=== PATIENT | female | born 2000 | race Caucasian/White ===

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

== ENCOUNTER 2019-01-11 14:16 | Emergency (ER) | payer SELFPAY ==
[~2019-01-11] VITALS: Ht 167.6 cm; Wt 53.8 kg
--- NOTE | ~2019-01-11 | EKG ---
[place], [place] ELECTROCARDIOGRAM REPORT NAME: GHAZAL CHARLES UNIT #: [id number] ROOM: DOCTOR: CORINNA DRAFT REPORT BIRTHDATE: [birth year] [facility] Test Date: 2019-01-11 Test Time: 14:54:09 Pat Name: GHAZAL CHARLES Department: Room: Gender: F Plate Conditioner: Maura Yap : 2000 Requested By: RANDA SEBASTIAN Order Number: [id number] Reading MD: Eve Hough MD Measurements Intervals [place] Rate: 107 P: 70 MD: 118 QRS: 34 QRSD: 75 T: 42 QT: 315 QTc: 421 Interpretive Statements Sinus tachycardia Probable left atrial enlargement Anterior infarct, age undetermined Compared to ECG 06/22/2018 00:54:45 No significant changes Electronically Signed On 01-12-2019 7:04:24 PDT by Eve Hough MD CM:EKGRPT:ELECTROCARDIOGRAM REPORT [id number] RANDA SHIELDS DRAFT REPORT RANDA SEBASTIAN DO
[2019-01-11 15:01] LABS: BASO % 0.3 % (0.0-1.0); EOS # 0.1 10*3/uL (0.0-0.4); EOS % 0.6 % (1.0-4.0); HEMATOCRIT 42.1 % (37.0-47.0); HEMOGLOBIN 13.1 g/dl (12.0-16.0); LYMPH # 1.1 10*3/uL (1.3-4.4); LYMPH % 10.7 % (27.0-41.0); MEAN CELL VOLUME 82.9 fl (81.0-99.0); MEAN CORPUSCULAR HGB 25.8 pg (27.0-31.0); MEAN CORPUSCULAR HGB CONC 31.1 g/dl (33.0-37.0); MONO # 0.6 10*3/uL (0.1-1.0); MONO % 6.1 % (3.0-9.0); NEUT # 8.1 10*3/uL (2.3-7.9); NEUT % 81.7 % (47.0-73.0); PLATELET COUNT AUTOMATED 318 10*3/uL (130-400); RED BLOOD COUNT 5.08 10*6/uL (4.10-5.10); RED CELL DISTRI WIDTH 15.5 % (0-14.5)
[2019-01-11 15:10] LABS: ACT PARTIAL THROMBO TIME 21.1 SECONDS (20.8-31.5)
[2019-01-11 15:27] LABS: ALBUMIN 3.6 gm/dl (3.1-4.5); ALKALINE PHOSPHATASE 116 U/L (45-117); BUN 5 mg/dl (7-24); CHLORIDE 109 mmol/L (98-107); CREATININE 0.74 mg/dL (0.55-1.02); LIPASE 54 U/L (73-393); POTASSIUM 4.1 mmol/L (3.5-5.1); SGOT/AST 144 IU/L (3-35); SGPT/ALT 219 U/L (12-78); SODIUM 140 mmol/L (136-145); TOTAL PROTEIN 8.1 gm/dL (6.4-8.2)
[2019-01-11 15:35] LABS: ACETAMINOPHEN (TYLENOL) < 5.0 ug/ml (10-30); BETA-HCG, QUANT < 1.0 mIU/mL (1-3); ETHYL ALCOHOL < 3.0 mg/dl (<3); TROPONIN I < 0.015 ng/ml (<0.045)
== END 2019-01-11 16:29 | disposition home or self-care (01) ==
LOC: ED 14:16
PROVIDERS: Emergency Medicine
DX: T40.1X1A Poisoning by heroin, accidental (unintentional), initial encounter (principal); R51 Headache; R79.1 Abnormal coagulation profile; Y92.89 Other specified places as the place of occurrence of the external cause

== ENCOUNTER 2019-09-10 19:04 | Emergency (ER) | payer OTHER ==
[~2019-09-10] VITALS: Ht 157.4 cm; Wt 58.1 kg
== END 2019-09-10 19:48 | disposition left against medical advice (07) ==
LOC: ED 19:04
DX: R40.20 Unspecified coma (principal); Z53.21 Procedure and treatment not carried out due to patient leaving prior to being seen by health care provider; F11.90 Opioid use, unspecified, uncomplicated

== ENCOUNTER 2019-12-21 02:01 | Inpatient (IN) | payer OTHER ==
[~2019-12-21] VITALS: Ht 157.5 cm; Wt 62.2 kg
[2019-12-21 02:07] VITALS: BP 140/83
[2019-12-21 02:42] LABS: BASO % 0.1 % (0.0-1.0); EOS # 0.1 10*3/uL (0.0-0.4); EOS % 0.5 % (1.0-4.0); HEMATOCRIT 39.5 % (37.0-47.0); HEMOGLOBIN 12.5 g/dl (12.0-16.0); LYMPH # 1.7 10*3/uL (1.3-4.4); MEAN CELL VOLUME 81.4 fl (81.0-99.0); MEAN CORPUSCULAR HGB 25.8 pg (27.0-31.0); MEAN CORPUSCULAR HGB CONC 31.6 g/dl (33.0-37.0); MEAN PLATELET VOLUME 9.9 fl (9.6-12.3); MONO # 0.8 10*3/uL (0.1-1.0); MONO % 5.7 % (3.0-9.0); NEUT # 11.5 10*3/uL (2.3-7.9); NEUT % 81.1 % (47.0-73.0); PLATELET COUNT AUTOMATED 257 10*3/uL (130-400); RED BLOOD COUNT 4.85 10*6/uL (4.10-5.10); RED CELL DISTRI WIDTH 15.2 % (0-14.5); WHITE BLOOD COUNT 14.2 10*3/uL (4.8-10.8)
[2019-12-21 02:59] LABS: ALBUMIN 3.3 gm/dl (3.1-4.5); ALKALINE PHOSPHATASE 129 U/L (45-117); BUN 9 mg/dl (7-24); CHLORIDE 106 mmol/L (98-107); CREATININE 0.64 mg/dL (0.55-1.02); POTASSIUM 3.5 mmol/L (3.5-5.1); SGOT/AST 47 IU/L (3-35); SGPT/ALT 179 U/L (12-78); SODIUM 137 mmol/L (136-145)
[2019-12-21 03:09] LABS: ACETAMINOPHEN (TYLENOL) < 5.0 ug/ml (10-30); ETHYL ALCOHOL < 3.0 mg/dl (<3)
[2019-12-21 07:31] VITALS: BP 112/40
[2019-12-21 08:00] VITALS: BP 111/59
[2019-12-21 11:12] VITALS: BP 111/59
[2019-12-21 11:25] LABS: BILIRUBIN NEGATIVE (NEGATIVE); BLOOD NEGATIVE (NEGATIVE); CLARITY SL CLOUDY (CLEAR); COLOR YELLOW (YELLOW); GLUCOSE NEGATIVE (NEGATIVE); KETONE NEGATIVE (NEGATIVE); LEUKO ESTERASE NEGATIVE (NEGATIVE); NITRITE NEGATIVE (NEGATIVE); UROBILINOGEN 0.2 E.U./dl (0.2-1.0)
[2019-12-21 11:35] LABS: BACTERIA TRACE; MUCOUS TRACE
[2019-12-21 11:42] LABS: URINE AMPHETAMINES < 1000 (1000ng/ml); URINE BARBITURATES < 200 (200ng/ml); URINE BENZODIAZEPINES < 200 (200ng/ml); URINE CANNABINOIDS (THC) < 50 (50ng/ml); URINE COCAINE > 300 (300ng/ml); URINE METHADONE < 300 (300ng/ml); URINE OPIATES > 300 (300ng/ml)
[2019-12-21 11:43] LABS: URINE PHENCYCLIDINE < 25 (25ng/ml)
[2019-12-21 12:00] VITALS: BP 104/57
[2019-12-21] MEDS ORDERED: AUGMENTIN 875-875 MG PO (12:53)
[2019-12-21] MEDS ORDERED: TYLENOL EXTRA500 MG PO (12:53)
== END 2019-12-21 13:20 | disposition home or self-care (01) | DRG 720 ==
LOC: ED 02:01 → EDHOLD 06:16 → 5E 07:36
PROVIDERS: Emergency Medicine; ADMIT Internal Medicine
DX: A41.9 Sepsis, unspecified organism (principal); J69.0 Pneumonitis due to inhalation of food and vomit; R73.9 Hyperglycemia, unspecified; E83.51 Hypocalcemia; B19.20 Unspecified viral hepatitis C without hepatic coma; F17.200 Nicotine dependence, unspecified, uncomplicated; F14.10 Cocaine abuse, uncomplicated; J96.01 Acute respiratory failure with hypoxia; T40.1X4A Poisoning by heroin, undetermined, initial encounter; Z87.440 Personal history of urinary (tract) infections; Y92.89 Other specified places as the place of occurrence of the external cause; Z71.6 Tobacco abuse counseling; Z71.51 Drug abuse counseling and surveillance of drug abuser

== ENCOUNTER 2019-12-27 01:17 | Emergency (ER) | payer OTHER ==
[~2019-12-27] VITALS: Ht 157.4 cm; Wt 59.0 kg
[~2019-12-27 01:17] MED LIST changes: +AUGMENTIN 875-875 MG PO; +TYLENOL EXTRA500 MG PO
[2019-12-27 02:01] LABS: HEMATOCRIT 43.5 % (37.0-47.0); HEMOGLOBIN 13.5 g/dl (12.0-16.0); MEAN CELL VOLUME 82.2 fl (81.0-99.0); MEAN CORPUSCULAR HGB 25.5 pg (27.0-31.0); MEAN PLATELET VOLUME 9.7 fl (9.6-12.3); PLATELET COUNT AUTOMATED 402 10*3/uL (130-400); RED BLOOD COUNT 5.29 10*6/uL (4.10-5.10); RED CELL DISTRI WIDTH 15.9 % (0-14.5); WHITE BLOOD COUNT 23.8 10*3/uL (4.8-10.8)
[2019-12-27 02:23] LABS: BILIRUBIN NEGATIVE (NEGATIVE); BLOOD NEGATIVE (NEGATIVE); CLARITY SL CLOUDY (CLEAR); COLOR YELLOW (YELLOW); GLUCOSE 2+ (NEGATIVE); KETONE TRACE (NEGATIVE); UROBILINOGEN 0.2 E.U./dl (0.2-1.0)
[2019-12-27 02:24] LABS: LEUKO ESTERASE NEGATIVE (NEGATIVE); NITRITE NEGATIVE (NEGATIVE)
[2019-12-27 02:30] LABS: ALBUMIN 4.1 gm/dl (3.1-4.5); ALKALINE PHOSPHATASE 135 U/L (45-117); BUN 16 mg/dl (7-24); CHLORIDE 106 mmol/L (98-107); POTASSIUM 3.2 mmol/L (3.5-5.1); SGOT/AST 40 IU/L (3-35); SGPT/ALT 68 U/L (12-78); SODIUM 137 mmol/L (136-145); TOTAL PROTEIN 8.8 gm/dL (6.4-8.2)
[2019-12-27 02:31] LABS: URINE AMPHETAMINES < 1000 (1000ng/ml); URINE BARBITURATES < 200 (200ng/ml); URINE BENZODIAZEPINES < 200 (200ng/ml); URINE CANNABINOIDS (THC) < 50 (50ng/ml); URINE COCAINE < 300 (300ng/ml); URINE METHADONE < 300 (300ng/ml); URINE OPIATES < 300 (300ng/ml)
[2019-12-27 02:33] LABS: URINE PHENCYCLIDINE < 25 (25ng/ml)
[2019-12-27 02:33] LABS: ACETAMINOPHEN (TYLENOL) < 5.0 ug/ml (10-30)
[2019-12-27 02:38] LABS: PLATELET SUFFICIENCY NORMAL (NORMAL); TOTAL CELLS COUNTED 100 #CELLS
[2019-12-27 02:39] LABS: ETHYL ALCOHOL < 3.0 mg/dl (<3)
[2019-12-27 02:41] LABS: EPITHELIAL CELLS 41-50
[2019-12-27 02:42] LABS: BACTERIA TRACE; YEAST TRACE
[2019-12-27 04:08] LABS: URINE AMPHETAMINES < 1000 (1000ng/ml); URINE BARBITURATES < 200 (200ng/ml); URINE BENZODIAZEPINES < 200 (200ng/ml); URINE CANNABINOIDS (THC) < 50 (50ng/ml); URINE COCAINE < 300 (300ng/ml); URINE METHADONE < 300 (300ng/ml); URINE OPIATES < 300 (300ng/ml)
[2019-12-27 04:15] LABS: URINE PHENCYCLIDINE < 25 (25ng/ml)
== END 2019-12-27 04:30 | disposition left against medical advice (07) ==
LOC: ED 01:17
PROVIDERS: Emergency Medicine
DX: D72.829 Elevated white blood cell count, unspecified (principal); E87.2 Acidosis; R00.0 Tachycardia, unspecified; G43.909 Migraine, unspecified, not intractable, without status migrainosus; F11.10 Opioid abuse, uncomplicated; F19.90 Other psychoactive substance use, unspecified, uncomplicated; F17.200 Nicotine dependence, unspecified, uncomplicated; Z79.2 Long term (current) use of antibiotics; Z79.899 Other long term (current) drug therapy; Z53.29 Procedure and treatment not carried out because of patient's decision for other reasons

== ENCOUNTER 2019-12-27 05:27 | Emergency (ER) | payer OTHER ==
[~2019-12-27] VITALS: Ht 157.4 cm; Wt 59.0 kg
== END 2019-12-27 09:51 | disposition home or self-care (01) ==
LOC: ED 05:27
DX: D72.829 Elevated white blood cell count, unspecified (principal); F11.20 Opioid dependence, uncomplicated; R05 Cough; G43.909 Migraine, unspecified, not intractable, without status migrainosus; F17.210 Nicotine dependence, cigarettes, uncomplicated; Z79.2 Long term (current) use of antibiotics; Z79.899 Other long term (current) drug therapy; Z98.890 Other specified postprocedural states

== ENCOUNTER 2020-01-02 17:15 | Emergency (ER) | payer OTHER ==
[~2020-01-02] VITALS: Ht 157.4 cm; Wt 59.0 kg
== END 2020-01-02 17:48 | disposition home or self-care (01) ==
LOC: ED 17:15
DX: F11.10 Opioid abuse, uncomplicated (principal); R05 Cough; Z79.899 Other long term (current) drug therapy

== ENCOUNTER 2021-03-12 21:22 | Emergency (ER) | payer OTHER ==
[~2021-03-12] VITALS: Ht 157.4 cm; Wt 54.4 kg
[2021-03-12 23:00] LABS: BILIRUBIN Negative (Negative); BLOOD Negative (Negative); CLARITY Clear (Clear); COLOR Yellow (Yellow); GLUCOSE Negative (Negative); KETONE Negative (Negative); LEUKO ESTERASE Trace (Negative); NITRITE Negative (Negative); SPECIFIC GRAVITY 1.015 (1.001-1.030)
[2021-03-12 23:46] LABS: BACTERIA 2+; EPITHELIAL CELLS 16-20
[2021-03-13] MEDS ORDERED: AUGMENTIN 875875 MG PO (00:03)
== END 2021-03-13 00:16 | disposition home or self-care (01) ==
LOC: ED 21:22
PROVIDERS: Internal Medicine
DX: K02.9 Dental caries, unspecified (principal); K08.89 Other specified disorders of teeth and supporting structures; Z98.890 Other specified postprocedural states

== ENCOUNTER 2021-03-20 21:30 | Emergency (ER) | payer OTHER ==
[~2021-03-20] VITALS: Ht 154.9 cm; Wt 56.7 kg
== END 2021-03-21 00:18 | disposition home or self-care (01) ==
LOC: ED 21:30
DX: R06.02 Shortness of breath (principal); Z53.21 Procedure and treatment not carried out due to patient leaving prior to being seen by health care provider

== ENCOUNTER 2021-04-13 11:23 | Inpatient (IN) | payer OTHER ==
[~2021-04-13] VITALS: Ht 157.4 cm; Wt 54.4 kg
[2021-04-13 11:40] VITALS: BP 131/65
[2021-04-13 12:02] VITALS: BP 131/65
[2021-04-13 12:43] LABS: BASO # 0.1 10*3/uL (0.0-0.1); BASO % 0.6 % (0.0-1.0); EOS % 0.2 % (1.0-4.0); HEMATOCRIT 52.4 % (37.0-47.0); LYMPH # 2.1 10*3/uL (1.3-4.4); LYMPH % 17.7 % (27.0-41.0); MEAN CELL VOLUME 80.5 fl (81.0-99.0); MEAN CORPUSCULAR HGB CONC 32.3 g/dl (33.0-37.0); MEAN PLATELET VOLUME 9.9 fl (9.6-12.3); MONO # 0.6 10*3/uL (0.1-1.0); MONO % 4.7 % (3.0-9.0); NEUT % 76.4 % (47.0-73.0); PLATELET COUNT AUTOMATED 429 10*3/uL (130-400); RED BLOOD COUNT 6.51 10*6/uL (4.10-5.10); WHITE BLOOD COUNT 11.8 10*3/uL (4.8-10.8)
[2021-04-13 12:55] LABS: INTERNATIONAL NORM RATIO 1.1 (2.0-3.5)
[2021-04-13 12:58] LABS: ALBUMIN 4.8 gm/dl (3.1-4.5); ALKALINE PHOSPHATASE 132 U/L (45-117); BUN 15 mg/dl (7-24); CHLORIDE 108 mmol/L (98-107); CREATININE 0.79 mg/dL (0.55-1.02); POTASSIUM 3.5 mmol/L (3.5-5.1); SGOT/AST 12 IU/L (3-35); SGPT/ALT 13 U/L (12-78); SODIUM 139 mmol/L (136-145); TOTAL PROTEIN 9.8 gm/dL (6.4-8.2)
[2021-04-13 13:05] LABS: BETA-HCG, QUANT < 1.0 mIU/mL (1-3); ETHYL ALCOHOL < 3.0 mg/dl (<3)
[2021-04-13 13:18] LABS: BILIRUBIN Negative (Negative); BLOOD Negative (Negative); CLARITY Clear (Clear); COLOR Dark Yellow (Yellow); GLUCOSE Negative (Negative); KETONE 1+ (Negative); LEUKO ESTERASE 1+ (Negative); NITRITE Negative (Negative); PH 6.5 (4.5-8.0); SPECIFIC GRAVITY 1.025 (1.001-1.030)
[2021-04-13 13:27] LABS: URINE AMPHETAMINES < 1000 (1000ng/ml); URINE BARBITURATES < 200 (200ng/ml); URINE BENZODIAZEPINES < 200 (200ng/ml); URINE CANNABINOIDS (THC) < 50 (50ng/ml); URINE COCAINE > 300 (300ng/ml); URINE METHADONE < 300 (300ng/ml); URINE OPIATES < 300 (300ng/ml)
[2021-04-13 13:32] LABS: URINE PHENCYCLIDINE < 25 (25ng/ml)
[2021-04-13 13:45] LABS: BACTERIA 2+; EPITHELIAL CELLS 16-20; MUCOUS 2+; WBC 21-30 wbc/hpf (0-5)
[2021-04-13 16:00] VITALS: BP 113/80
[2021-04-13 20:00] VITALS: BP 129/62
[2021-04-14] VITALS: BP 131/68
[2021-04-14 07:37] VITALS: BP 117/75
[2021-04-14 12:00] VITALS: BP 131/82
[2021-04-14 16:00] VITALS: BP 123/64
== END 2021-04-14 19:06 | disposition left against medical advice (07) | DRG 770 ==
LOC: 5E 11:23
PROVIDERS: Family Medicine; ADMIT Student in an Organized Health Care Education/Training Program; ATTEND Student in an Organized Health Care Education/Training Program
DX: F11.13 Opioid abuse with withdrawal (principal); R74.8 Abnormal levels of other serum enzymes; F17.210 Nicotine dependence, cigarettes, uncomplicated; R82.71 Bacteriuria; F14.10 Cocaine abuse, uncomplicated; Z53.29 Procedure and treatment not carried out because of patient's decision for other reasons; D72.828 Other elevated white blood cell count; E87.8 Other disorders of electrolyte and fluid balance, not elsewhere classified; R00.0 Tachycardia, unspecified; D75.1 Secondary polycythemia; D47.3 Essential (hemorrhagic) thrombocythemia; Z71.6 Tobacco abuse counseling; Z82.49 Family history of ischemic heart disease and other diseases of the circulatory system

== ENCOUNTER 2021-10-18 13:17 | Emergency (ER) | payer MEDICAID ==
[~2021-10-18] VITALS: Ht 157.4 cm; Wt 59.0 kg
[2021-10-18] MEDS ORDERED: NARCAN4 MG NAS (13:45)
== END 2021-10-18 15:16 | disposition left against medical advice (07) ==
LOC: ED 13:17
DX: T40.1X1A Poisoning by heroin, accidental (unintentional), initial encounter (principal); R40.4 Transient alteration of awareness; F17.210 Nicotine dependence, cigarettes, uncomplicated; Z90.89 Acquired absence of other organs; Y92.89 Other specified places as the place of occurrence of the external cause

== ENCOUNTER 2022-06-10 17:14 | Emergency (ER) | payer MEDICAID ==
[~2022-06-10] VITALS: Wt 54.4 kg
[~2022-06-10 17:14] MED LIST changes: +NARCAN4 MG NAS
== END 2022-06-10 23:20 ==
LOC: ED 17:14
DX: T18.9XXA Foreign body of alimentary tract, part unspecified, initial encounter (principal); R11.10 Vomiting, unspecified; F17.210 Nicotine dependence, cigarettes, uncomplicated; Z79.899 Other long term (current) drug therapy; Z79.2 Long term (current) use of antibiotics; Z90.89 Acquired absence of other organs; X58.XXXA Exposure to other specified factors, initial encounter; Y93.89 Activity, other specified; Y92.89 Other specified places as the place of occurrence of the external cause; Y99.8 Other external cause status

== ENCOUNTER 2022-08-01 23:30 | Emergency (ER) | payer MEDICAID ==
[~2022-08-01] VITALS: Ht 157.4 cm; Wt 59.0 kg
[2022-08-01] MEDS ORDERED: BUPRENORPHINE-1 EAC2 SL (23:41)
[2022-08-01] MEDS ORDERED: PENICILLIN VK500 MG PO (23:44)
== END 2022-08-02 00:09 | disposition home or self-care (01) ==
LOC: ED 23:30
DX: K04.7 Periapical abscess without sinus (principal); Z79.899 Other long term (current) drug therapy; Z90.89 Acquired absence of other organs; Z87.891 Personal history of nicotine dependence

== ENCOUNTER 2024-02-12 15:39 | Emergency (ER) | payer MEDICAID ==
[~2024-02-12] VITALS: Ht 157.5 cm; Wt 61.2 kg
[~2024-02-12 15:39] MED LIST changes: +BUPRENORPHINE-1 EAC2 SL; +PENICILLIN VK500 MG PO
[2024-02-12] MEDS ORDERED: VIBRAMYCIN HYC100 MG PO (16:28)
[2024-02-12] MEDS ORDERED: Doxycycline Hyclate 100 MG CAP PO ONE (16:30)
== END 2024-02-12 17:56 | disposition home or self-care (01) ==
LOC: ED 15:39
DX: L03.116 Cellulitis of left lower limb (principal); F17.210 Nicotine dependence, cigarettes, uncomplicated; Z90.89 Acquired absence of other organs

== ENCOUNTER 2024-04-26 19:52 | Emergency (ER) | payer MEDICAID ==
[~2024-04-26] VITALS: Wt 62.6 kg
[~2024-04-26 19:52] MED LIST changes: +VIBRAMYCIN HYC100 MG PO
[2024-04-26] MEDS ORDERED: Motrin,Rufen800 MG PO (20:28)
[2024-04-26] MEDS ORDERED: PENICILLIN VK500 MG PO (20:28)
== END 2024-04-26 20:39 | disposition home or self-care (01) ==
LOC: ED 19:52
DX: K02.9 Dental caries, unspecified (principal); K04.7 Periapical abscess without sinus; G43.909 Migraine, unspecified, not intractable, without status migrainosus; F17.210 Nicotine dependence, cigarettes, uncomplicated; F11.10 Opioid abuse, uncomplicated; F19.10 Other psychoactive substance abuse, uncomplicated; Z90.89 Acquired absence of other organs